=== PATIENT | female | born 1970 ===

== ENCOUNTER 2016-12-27 19:10 | Emergency (ER) | payer SELFPAY ==
[2016-12-27 19:15] VITALS: BP 143/80; PULSE 91; RESP 18; TEMP 99.7; O2SAT 99
[2016-12-27] MEDS ORDERED: Sodium Chloride 0.9% 1,000 ML IV STA (20:26)
[2016-12-27 21:09] LABS: BASO % 0.2 % (0.0-2.0); EOS # 0.1 K/uL (0.0-0.7); EOS % 0.5 % (0.0-4.0); HEMATOCRIT 42.1 % (34.0-47.0); LYMPH # 1.8 K/uL (1.0-4.3); MEAN CELL VOLUME 97.7 fl (81.0-99.0); MEAN CORPUSCULAR HEMOGLOBIN 32.6 pg (27.0-31.0); MEAN CORPUSCULAR HGB CONC 33.4 g/dL (33.0-37.0); MEAN PLATELET VOLUME 8.4 fl (7.2-11.7); MONO # 0.6 K/uL (0.0-0.8); MONO % 4.7 % (0.0-10.0); NEUT # 11.3 K/uL (1.8-7.0); NEUT % 81.6 % (50.0-75.0); RED CELL DISTRIBUTION WIDTH 12.9 % (11.5-14.5); WHITE BLOOD COUNT 13.8 K/uL (4.8-10.8)
--- NOTE | 2016-12-27 21:11 | ED PDOC ---
"HPI: Abdomen Time Seen by Provider: 12/27/16 20:20 Chief Complaint (Nursing): Abdominal Pain Chief Complaint (Provider): abdominal pain, nausea History Per: Patient, Family, Md Physician Dermatologist History/Exam Limitations: no limitations Outside of [place] travel?: No Current Symptoms Are (Timing): Still Present Severity: Moderate Location Of Pain/Discomfort: RUQ, RLQ Quality Of Discomfort: Sharp Associated Symptoms: Nausea, Loss Of Appetite. denies: Vomiting, Diarrhea Exacerbating Factors: None Alleviating Factors: None Last Bowel Movement: Today Additional Complaint(s): 46yo female c/o R sided abdominal pain, mid-abdomen radiating to RUQ and RLQ. Denies fever, back pain. Admits to some loss of appetite and nausea. Denies prior history of similar pain. Abnormal Vaginal Bleeding: No Past Medical History Reviewed: Historical Data, Nursing Documentation, Vital Signs Vital Signs: Last Vital Signs Temp 99.7 F H 12/27/16 19:13 Pulse 91 H 12/27/16 19:13 Resp 18 12/27/16 19:13 BP 143/80 12/27/16 19:13 Pulse Ox 99 12/27/16 22:13 - Medical History PMH: HTN - Surgical History Surgical History: - Family History Family History: States: Unknown Family Hx - Living Arrangements Living Arrangements: With Family - Social History Current smoker - smoking cessation education provided: No - Home Medications Home Medications: Ambulatory Orders Medication Instructions Recorded Ciprofloxacin HCl [Cipro] 250 mg PO BID #14 tab 12/27/16 Dicyclomine [Bentyl] 10 mg PO QID PRN #12 cap 12/27/16 Ondansetron [Zofran] 4 mg PO Q6H PRN #10 tab 12/27/16 traMADol [Ultram] 50 mg PO TID PRN #12 tab 12/27/16 - Allergies Allergies/Adverse Reactions: Allergies Allergy/AdvReac Type Severity Reaction Status Date / Time No Known Allergies Allergy Verified 12/27/16 19:12 Review of Systems ROS Statement: Except As Marked, All Systems Reviewed And Found Negative Constitutional: Negative for: Fever, Chills Cardiovascular: Negative for: Chest Pain, Palpitations Respiratory: Negative for: Cough, Shortness of Breath Gastrointestinal: Positive for: Nausea, Vomiting, Abdominal Pain Genitourinary Female: Negative for: Dysuria, Frequency Musculoskeletal: Negative for: Neck Pain, Shoulder Pain, Back Pain Skin: Negative for: Rash, Lesions Neurological: Negative for: Weakness, Numbness Psych: Negative for: Anxiety, Depression Physical Exam - Reviewed Nursing Documentation Reviewed: Yes Vital Signs Reviewed: Yes - Physical Exam Appears: Positive for: Well, Non-toxic, No Acute Distress Head Exam: Positive for: ATRAUMATIC, NORMAL INSPECTION, NORMOCEPHALIC Skin: Positive for: Normal Color, Warm, DRY Eye Exam: Positive for: EOMI, Normal appearance, PERRL ENT: Positive for: Normal ENT Inspection Neck: Positive for: Normal, Painless ROM Cardiovascular/Chest: Positive for: Regular Rate, Rhythm Respiratory: Positive for: CNT, Normal Breath Sounds Gastrointestinal/Abdominal: Positive for: Normal Exam, Bowel Sounds, Soft Back: Positive for: Normal Inspection Extremity: Positive for: Normal ROM Neurologic/Psych: Positive for: Alert, Oriented. Negative for: Motor/Sensory Deficits - Laboratory Results Result Diagrams: 12/27/16 20:53 12/27/16 20:53 - ECG O2 Sat by Pulse Oximetry: 99 Medical Decision Making Medical Decision Making: Time: 22:10 CT ABD/Pelvis with IV contrast FINDINGS: Lower thorax: Linear atelectasis or fibrosis in the lung bases. ABDOMEN: Liver: Unremarkable. No mass. Gallbladder and bile ducts: Unremarkable. No calcified stones. No ductal dilation. Pancreas: Unremarkable. No mass. No ductal dilation. Spleen: Unremarkable. No splenomegaly. Adrenals: Unremarkable. No mass. Kidneys and ureters: Unremarkable. No solid mass. No hydronephrosis. Stomach and bowel: Extensive mucosal thickening throughout the ileum consistent with ileitis. Mild retention throughout the colon. Appendix: Normal appendix. PELVIS: Bladder: Unremarkable. No mass. Reproductive: Small probable uterine fibroids. ABDOMEN and PELVIS: Intraperitoneal space: Small volume of abdominal and pelvic ascites. Bones/joints: No acute fracture. No dislocation. Soft tissues: Small left inguinal hernia containing fat. GETACHEW POLK | Preliminary Radiology Report UNLOADER (QA) DISCREPANCY? If there is a discrepancy between the preliminary and final interpretation, please notify [facility] via [email or web address]. If you do not have access to our QA portal, call our QA team at [phone] CONFIDENTIALITY STATEMENT This report is intended only for the use of the referring physician, and only in accordance with law, If you received this in error, call [phone] Page 2 of 2 Vasculature: Unremarkable. No abdominal aortic aneurysm. Lymph nodes: Unremarkable. No enlarged lymph nodes. IMPRESSION: 1. Small volume of abdominal and pelvic ascites. 2. Extensive mucosal thickening throughout the ileum consistent with ileitis. labs reveal mild elev WBC, normal LFTs and mild dehydration (ketones in urine). Gluc normal. Pt feels better in ED, no vomiting, states pain mostly resolved, mild pain when standing up only. Refer to GI integration software developer and treat cipro empirically, zofran/ tramadol/ bentyl. All results explained via fluent [facility] [place]. Disposition - Clinical Impression Clinical Impression: Ileitis, Dehydration - Patient ED Disposition Is Patient to be Admitted: No Counseled Patient/Family Regarding: Studies Performed, Diagnosis - Disposition Referrals: Nino Dickens MD, PhD [Staff Provider] - Disposition: Routine/Home Disposition Time: 22:10 Condition: STABLE Additional Instructions: Take medications as directed for symptoms. See net front end developer for further testing and treatment. Return to ER for any worse pain, fever, vomiting, or any concern. Recommend simply liquid based diet for next 1-2 days and advance as tolerated. Avoid dairy for one week. Prescriptions: Ciprofloxacin HCl [Cipro] 250 mg PO BID #14 tab Dicyclomine [Bentyl] 10 mg PO QID PRN #12 cap PRN Reason: Gi Distress Ondansetron [Zofran] 4 mg PO Q6H PRN #10 tab PRN Reason: Nausea/Vomiting traMADol [Ultram] 50 mg PO TID PRN #12 tab PRN Reason: Pain, Moderate (4-7) Instructions: Dehydration (ED), Gastroenteritis (ED) Forms: [employer] ([place]ian)"
[2016-12-27 21:23] LABS: RBC URINE 16 /hpf (0-3); URINE BACTERIA RARE (<OCC); URINE BILIRUBIN NEGATIVE (NEGATIVE); URINE BLOOD MODERATE (NEGATIVE); URINE COLOR YELLOW (YELLOW); URINE GLUCOSE (UA) NEG (Normal); URINE KETONE 20 mg/dL (NEGATIVE); URINE LEUKOCYTE ESTERASE NEG Leu/uL (Negative); URINE PROTEIN NEGATIVE (NEGATIVE); URINE UROBILINOGEN 0.2-1.0 mg/dL (0.2-1.0); WBC URINE 2 /hpf (0-5)
[2016-12-27 21:29] LABS: ALB/GLOB RATIO 1.3 (1.0-2.1); ALKALINE PHOSPHATASE 76 U/L (38-126); ALT/SGPT 42 U/L (9-52); AST/SGOT 29 U/L (14-36); BILIRUBIN,TOTAL 0.8 mg/dl (0.2-1.3); BLOOD UREA NITROGEN 12 mg/dl (7-17); CALCIUM 10.1 mg/dL (8.4-10.2); CARBON DIOXIDE 27 mmol/L (22-30); CHLORIDE 97 mmol/L (98-107); GFR AFRICAN-AMERICAN > 60; GLUCOSE,RANDOM 109 mg/dL (65-105); LIPASE 37 U/L (23-300); POTASSIUM 4.2 MMOL/L (3.6-5.0); SODIUM 134 mmol/l (132-148); TOTAL PROTEIN 7.6 G/DL (6.3-8.2)
--- NOTE | 2016-12-28 11:27 | CT ---
PROCEDURE: CT Abdomen and Pelvis with contrast HISTORY: R sided abd pain, nausea COMPARISON: None available TECHNIQUE: Contrast dose: 90 mL Omnipaque 300 Radiation dose: Total exam DLP = 907.54 mGy-cm. This CT exam was performed using one or more of the following dose reduction techniques: Automated exposure control, adjustment of the mA and/or kV according to patient size, and/or use of iterative reconstruction technique. FINDINGS: LOWER THORAX: Mild bibasilar atelectasis. No visible pleural effusion or pneumothorax. Small hiatal hernia. LIVER: Unremarkable. GALLBLADDER AND BILE DUCTS: Unremarkable. PANCREAS: Unremarkable. SPLEEN: Unremarkable. ADRENALS: Unremarkable. KIDNEYS AND URETERS: The kidneys enhance symmetrically. No hydronephrosis or obstructing calculus identified. VASCULATURE: No aortic aneurysm. BOWEL: Stomach is nondistended. Lack of oral contrast limits evaluation for bowel pathology. Bowel loops appear within normal limits of caliber without evidence of obstruction. Extensive mucosal thickening involving ileum ; correlate for infectious or inflammatory etiologies/ileitis. Mild retained colonic fecal material. APPENDIX: The appendix appears within normal limits of caliber. No secondary signs of acute appendicitis. PERITONEUM: Small abdominal and pelvic ascites. No definite free air. LYMPH NODES: No bulky adenopathy. BLADDER: Unremarkable. REPRODUCTIVE: The uterus is present. Several uterine hyperdensities, presumably fibroids. BONES: No acute osseous abnormality is detected. OTHER FINDINGS: Small fat containing left inguinal hernia. Small fat containing umbilical hernia. IMPRESSION: Extensive mucosal thickening involving ileum ; correlate for infectious or inflammatory etiologies/ileitis. Small abdominal and pelvic ascites. Additional findings as above. Preliminary impression was provided by virtual radiologic.
== END 2016-12-27 22:25 | disposition home or self-care (01) ==
LOC: MERGE 19:10 → H.ER 19:10
DX: K52.9 Noninfective gastroenteritis and colitis, unspecified (principal); E86.0 Dehydration; I10 Essential (primary) hypertension; R11.0 Nausea
CPT/HCPCS: 74177; 80053; 81003; 81025; 83690; 85025; 96360; 99283; J1885; J2405; J7040

== ENCOUNTER 2017-12-05 19:55 | Emergency (ER) | payer SELFPAY ==
[2017-12-05 20:06] VITALS: O2SAT 100
--- NOTE | 2017-12-05 20:13 | ED PDOC ---
HPI: Abdomen Time Seen by Provider: 12/05/17 20:08 Chief Complaint (Nursing): Abdominal Pain Chief Complaint (Provider): abdominal pain History Per: Patient, Other (Patient has friend at bedside who is translating for patient in Gibraltarian) Additional Complaint(s): 47-year-old female presents with diffuse abdominal pain ongoing for 3 days. Patient states it feels like a squeezing pain in the middle of her abdomen. Every time she eats something she feels worsening pain. He denies any vomiting but does have nausea, no diarrhea or constipation. Patient has not taken anything for abdominal pain relief. She rates current pain as a 9 out of 10. PMD: Dr. Lou Past Medical History Reviewed: Historical Data, Nursing Documentation, Vital Signs Vital Signs: Last Vital Signs Temp 99.2 F 12/05/17 20:02 Pulse 84 12/05/17 20:02 Resp 16 12/05/17 20:02 BP 132/79 12/05/17 20:02 Pulse Ox 100 12/05/17 23:04 - Medical History PMH: Anxiety, HTN - Surgical History Surgical History: - Family History Family History: States: No Known Family Hx - Living Arrangements Living Arrangements: With Family - Social History Current smoker - smoking cessation education provided: No Alcohol: Social Drugs: Denies - Home Medications Home Medications: Ambulatory Orders Medication Instructions Recorded Ciprofloxacin HCl [Cipro] 250 mg PO BID #14 tab 12/27/16 Dicyclomine [Bentyl] 10 mg PO QID PRN #12 cap 12/27/16 Ondansetron [Zofran] 4 mg PO Q6H PRN #10 tab 12/27/16 traMADol [Ultram] 50 mg PO TID PRN #12 tab 12/27/16 Omeprazole 40 mg PO DAILY #30 cap 12/05/17 - Allergies Allergies/Adverse Reactions: Allergies Allergy/AdvReac Type Severity Reaction Status Date / Time No Known Allergies Allergy Verified 12/05/17 20:02 Review of Systems ROS Statement: Except As Marked, All Systems Reviewed And Found Negative Constitutional: Negative for: Fever, Chills Cardiovascular: Negative for: Chest Pain Respiratory: Negative for: Cough Gastrointestinal: Positive for: Nausea, Abdominal Pain. Negative for: Vomiting , Diarrhea, Constipation, Rectal Pain Genitourinary Female: Negative for: Dysuria, Vaginal Discharge, Vaginal Bleeding Physical Exam - Reviewed Nursing Documentation Reviewed: Yes Vital Signs Reviewed: Yes - Physical Exam Appears: Positive for: Well, Non-toxic, No Acute Distress Skin: Negative for: Rash Eye Exam: Positive for: Normal appearance Cardiovascular/Chest: Positive for: Regular Rate, Rhythm Respiratory: Positive for: Normal Breath Sounds. Negative for: Wheezing, Respiratory Distress Gastrointestinal/Abdominal: Positive for: Bowel Sounds (Normoactive bowel sounds in all 4 quadrants), Tenderness (Epigastric and right upper quadrant region, no distention, guarding or rebound) Back: Negative for: L CVA Tenderness, R CVA Tenderness Extremity: Positive for: Normal ROM Neurologic/Psych: Positive for: Alert, Oriented - Laboratory Results Result Diagrams: 12/05/17 20:57 12/05/17 20:57 Urine POC: Negative Urine dip results: Positive for: Leukocyte Esterase (trace), Blood (moderate), Ketones. Negative for: Nitrate, Glucose, Bilirubin, Protein - ECG O2 Sat by Pulse Oximetry: 100 Pulse Ox Interpretation: Normal - Other Rad Abd US X-Ray: Read By Radiologist X-Ray Interpretation: see below Medical Decision Making Medical Decision Makin47 y/o with abd pain Plan: Urine dip Urine test CBC CMP Lipase IVF Abd US IV zofran IV toradol PO protonix PO maalox US: FINDINGS: Liver: There is mild increased echogenicity of the liver. There is hepatopedal flow in the main portal vein. Gallbladder: Gallbladder is distended with no shadowing stones. There is a small amount of sludge. There is no wall thickening. There is a small gallbladder polyp. Common bile duct: Common bile duct measures approximately 2.8 mm in diameter. Pancreas: Pancreas is partially obscured by bowel gas. Kidneys: Right kidney is normal in size. There is mild increase in cortical echogenicity. Left kidney is unremarkable. Spleen: Spleen is unremarkable. Aorta: Visualized portions of the aorta and inferior vena cava are unremarkable. Inferior vena cava: See above. IMPRESSION: Small gallbladder polyp with minimal sludge, no stones, wall thickening or ductal dilatation Patient was not tender over the gallbladder. Above results d/w Dr. Bansal, patient can follow up as outpatient with GI. Patient is aware of all diagnostic testing results. Patient states she feels much better after medications were given ED. Prescription provided for omeprazole and patient was referred to feeder switchboard operator irrigation service technician. Patient is stable for discharge. Disposition - Clinical Impression Clinical Impression: Gastritis - Patient ED Disposition Is Patient to be Admitted: No Counseled Patient/Family Regarding: Studies Performed, Diagnosis, Need For Followup, Rx Given - Disposition Referrals: John Shannon MD [Staff Provider] - Disposition: Routine/Home Disposition Time: 23:19 Condition: STABLE Additional Instructions: Take prescription meds as directed. Follow dietary instructions. Follow-up with feeder switchboard operator in 2-3 days. Prescriptions: Omeprazole 40 mg PO DAILY #30 cap Instructions: Gastritis (DC), Ulcer and Gastritis Diet Print Language: [email or web address] Results - Lab Results Lab Results: 12/05/17 12/05/17 12/05/17 21:05 20:57 20:57 WBC 9.3 RBC 3.73 L Hgb 12.6 Hct 36.1 MCV 96.8 MCH 33.7 H MCHC 34.8 RDW 12.6 Plt Count 211 MPV 8.4 Neut % (Auto) 67.7 Lymph % (Auto) 24.3 Saunders % (Auto) 6.4 Eos % (Auto) 1.2 Baso % (Auto) 0.4 Neut # (Auto) 6.3 Lymph # (Auto) 2.2 Saunders # (Auto) 0.6 Eos # (Auto) 0.1 Baso # (Auto) 0.0 Sodium 135 Potassium 3.4 L Chloride 99 Carbon Dioxide 29 Anion Gap 10 BUN 13 Creatinine 0.5 L Est GFR ( Amer) > 60 Est GFR (Non-Af Amer) > 60 Random Glucose 86 Calcium 8.3 L Total Bilirubin 0.8 AST 23 ALT 35 Alkaline Phosphatase 62 Total Protein 7.1 Albumin 3.7 Globulin 3.3 Albumin/Globulin Ratio 1.1 Lipase 46 Urine Color Yellow Urine Clarity Slighty-cloudy Urine pH 7.0 Ur Specific [place] 1.020 Urine Protein Negative Urine Glucose (UA) Neg Urine Ketones Trace Urine Blood Moderate Urine Nitrate Negative Urine Bilirubin Negative Urine Urobilinogen 4.0 H Ur Leukocyte Esterase Trace Urine RBC (Auto) 33 H Urine Microscopic WBC 6 H Ur Squamous Epith Cells 1 Urine Bacteria Rare
[2017-12-05] MEDS ORDERED: Pantoprazole 40 mg EC Tab PO STA (20:41)
[2017-12-05] MEDS ORDERED: Sodium Chloride 0.9% 1,000 ML IV STA (20:41)
[2017-12-05] MEDS ORDERED: Alum-Mag Hydrox-Simethicone Susp (30 mL) PO STA (20:41)
[2017-12-05 21:03] LABS: BASO % 0.4 % (0.0-2.0); EOS # 0.1 K/uL (0.0-0.7); EOS % 1.2 % (0.0-4.0); HEMOGLOBIN 12.6 g/dL (12.0-16.0); LYMPH # 2.2 K/uL (1.0-4.3); LYMPH % 24.3 % (20.0-40.0); MEAN CELL VOLUME 96.8 fl (81.0-99.0); MEAN CORPUSCULAR HEMOGLOBIN 33.7 pg (27.0-31.0); MEAN CORPUSCULAR HGB CONC 34.8 g/dL (33.0-37.0); MEAN PLATELET VOLUME 8.4 fl (7.2-11.7); MONO # 0.6 K/uL (0.0-0.8); MONO % 6.4 % (0.0-10.0); NEUT # 6.3 K/uL (1.8-7.0); NEUT % 67.7 % (50.0-75.0); RBC 3.73 Mil/uL (3.80-5.20); RED CELL DISTRIBUTION WIDTH 12.6 % (11.5-14.5); WHITE BLOOD COUNT 9.3 K/uL (4.8-10.8)
[2017-12-05 21:09] LABS: ALB/GLOB RATIO 1.1 (1.0-2.1); ALBUMIN 3.7 g/dL (3.5-5.0); ALT/SGPT 35 U/L (9-52); AST/SGOT 23 U/L (14-36); BLOOD UREA NITROGEN 13 mg/dl (7-17); CALCIUM 8.3 mg/dL (8.4-10.2); GFR AFRICAN-AMERICAN > 60; GFR NON-AFRICAN AMERICAN > 60; LIPASE 46 U/L (23-300)
[2017-12-05 21:22] LABS: SQUAMOUS EPITHIAL 1 /hpf (0-5); URINE BACTERIA RARE (<OCC); URINE BILIRUBIN NEGATIVE (NEGATIVE); URINE BLOOD MODERATE (NEGATIVE); URINE CLARITY SLIGHTY-CLOUDY (Clear); URINE COLOR YELLOW (YELLOW); URINE GLUCOSE (UA) NEG (Normal); URINE LEUKOCYTE ESTERASE TRACE Leu/uL (Negative); URINE PROTEIN NEGATIVE (NEGATIVE)
--- NOTE | 2017-12-05 23:03 | US ---
EXAM: US Abdomen Complete EXAM DATE/TIME: 12/05/2017 8:41 PM CLINICAL HISTORY: 47 years old, female; Pain; Abdominal pain; Epigastric; Additional info: Epigastric/ruq abd pain TECHNIQUE: Real-time ultrasound of the abdomen (complete) with image documentation. COMPARISON: There are no prior studies for comparison. FINDINGS: Liver: There is mild increased echogenicity of the liver. There is hepatopedal flow in the main portal vein. Gallbladder: Gallbladder is distended with no shadowing stones. There is a small amount of sludge. There is no wall thickening. There is a small gallbladder polyp. Common bile duct: Common bile duct measures approximately 2.8 mm in diameter. Pancreas: Pancreas is partially obscured by bowel gas. Kidneys: Right kidney is normal in size. There is mild increase in cortical echogenicity. Left kidney is unremarkable. Spleen: Spleen is unremarkable. Aorta: Visualized portions of the aorta and inferior vena cava are unremarkable. Inferior vena cava: See above. IMPRESSION: Small gallbladder polyp with minimal sludge, no stones, wall thickening or ductal dilatation Patient was not tender over the gallbladder
[2017-12-06 03:44] VITALS: BP 126/74; PULSE 86; RESP 18; TEMP 98.8
== END 2017-12-05 22:45 | disposition home or self-care (01) ==
LOC: H.ER 19:55
DX: K29.70 Gastritis, unspecified, without bleeding (principal); F41.9 Anxiety disorder, unspecified; I10 Essential (primary) hypertension; K82.4 Cholesterolosis of gallbladder
CPT/HCPCS: 76700; 80053; 81003; 81025; 83690; 85025; 87086; 99284; J1885; J2405; J7030